=== PATIENT | female | born 1985 | race American Indian/Alaskan Native ===

== ENCOUNTER 2016-08-24 10:25 | Emergency (ER) | payer SELFPAY ==
[2016-08-24 11:27] VITALS: BP 130/93
[2016-08-24] MEDS ORDERED: TORADOL IM ONE (11:42)
[2016-08-24] MEDS ORDERED: ZOFRAN ODT PO ONE (11:42)
--- NOTE | 2016-08-24 12:09 | Emergency Department Report ---
ED General Adult HPI - General Chief complaint: Headache Stated complaint: HEAD/BACK PAIN Time Seen by Provider: 08/24/16 11:32 Source: patient Mode of arrival: Ambulatory Limitations: No Limitations - History of Present Illness Initial comments: PT c/o gradual onset of headache x 3 days. PT states her whole body hurts. PT has hx of back pain and she is currently c/o back pain. PT staets she took dayquil and tylenol today. PT c/o N/V. PT states she has been around others with similar symptoms. MD Complaint: headache Onset/Timin -: Gradual Location: head, back Severity scale (0 -10): 10 Quality: other (pressure ) Consistency: constant Worsens with: other (light makes her headache worse ) Associated Symptoms: fever/chills, headaches, nausea/vomiting Treatments Prior to Arrival: other (tylenol and dayquil ) - Related Data Previous Rx's Medication Instructions Recorded Last Taken Type Ibuprofen [Motrin] 600 mg PO Q8H PRN #15 tablet 08/24/16 Unknown Rx Ondansetron [Zofran Odt] 4 mg PO Q8HR PRN #10 tab.rapdis 08/24/16 Unknown Rx Allergies Allergy/AdvReac Type Severity Reaction Status Date / Time No Known Allergies Allergy Verified 03/17/14 05:44 ED Review of Systems ROS: Stated complaint: HEAD/BACK PAIN Other details as noted in HPI Comment: All other systems reviewed and negative Constitutional: fever (subjective ) Eyes: other (photophobia ) ENT: denies: throat pain Respiratory: denies: cough Musculoskeletal: back pain, myalgia Neurological: headache, other (denies syncope ). denies: numbness ED Past Medical Hx - Past Medical History Hx Asthma: Yes Additional medical history: Chronic back pain - Surgical History Past Surgical History?: No - Social History Smoking Status: Never Smoker Substance Use Type: None - Medications Home Medications: Home Medications Medication Instructions Recorded Confirmed Last Taken Type Ibuprofen [Motrin] 600 mg PO Q8H PRN #15 tablet 08/24/16 Unknown Rx Ondansetron [Zofran Odt] 4 mg PO Q8HR PRN #10 tab.rapdis 08/24/16 Unknown Rx ED Physical Exam - General Limitations: No Limitations General appearance: alert, in no apparent distress - Head Head exam: Present: atraumatic, normocephalic - Eye Eye exam: Present: normal appearance, PERRL, EOMI - ENT ENT exam: Present: normal exam, normal orophraynx, TM's normal bilaterally, normal external ear exam - Neck Neck exam: Present: normal inspection, full ROM. Absent: tenderness, meningismus, lymphadenopathy - Respiratory Respiratory exam: Present: normal lung sounds bilaterally. Absent: respiratory distress - Cardiovascular Cardiovascular Exam: Present: regular rate, normal rhythm, normal heart sounds - GI/Abdominal GI/Abdominal exam: Present: soft, normal bowel sounds. Absent: tenderness - Rectal Rectal exam: Present: deferred - Extremities Exam Extremities exam: Present: normal inspection, full ROM - Back Exam Back exam: Present: normal inspection, full ROM. Absent: tenderness - Neurological Exam Neurological exam: Present: alert, oriented X3 - Psychiatric Psychiatric exam: Present: normal affect, normal mood - Skin Skin exam: Present: warm, dry, intact ED Course Vital Signs 08/24/16 11:23 Temperature 97.9 F Pulse Rate 93 H Respiratory 20 Rate Blood Pressure 130/93 O2 Sat by Pulse 98 Oximetry - Reevaluation(s) Reevaluation #1: 08/24/16 12:06 PT aware Tylenol is an active ingredient in Dayquil. PT aware she should not take two tylenol containing products together. Reevaluation #2: 08/24/16 12:56 PT states the pain has eased off some. PT aware of lab results. Pt requesting work excuse. - Pulse Oximetry Interpretation Digit-Finger Initial Pulse Oximetry Readin Actions Taken: none ED Medical Decision Making - Differential Diagnosis headache, migraine, age Critical Care Time: No Critical care attestation.: If time is entered above; I have spent that time in minutes in the direct care of this critically ill patient, excluding procedure time. ED Disposition Clinical Impression: Myalgia Headache Qualifiers: Headache type: unspecified Headache chronicity pattern: acute headache Intractability: not intractable Qualified Code(s): R51 - Headache Disposition: DISCHARGED TO HOME OR SELFCARE Is pt being admited?: No Does the pt Need Aspirin: No Condition: Stable Instructions: Migraine Headache (ED), Acute Headache (ED), Acute Nausea and Vomiting (ED) Additional Instructions: Do not take any more medication with Tylenol in it today Prescriptions: Ibuprofen [Motrin] 600 mg PO Q8H PRN #15 tablet PRN Reason: Pain Ondansetron [Zofran Odt] 4 mg PO Q8HR PRN #10 tab.rapdis PRN Reason: Nausea Referrals: PRIMARY CARE,MD [Primary Care Provider] - 3-5 Days Forms: Work/School Release Form(ED)
[2016-08-24 12:36] LABS: Bilirubin,Urine NEG (Negative); Blood,Urine MOD (Negative); Ketones,Urine NEG (Negative); Leukocyte Esterase,Urine NEG (Negative); Mucus,Urine FEW /HPF; Nitrite,Urine NEG (Negative); Protein,Urine <15 mg/dL mg/dL (Negative); Urobilinogen,Urine < 2.0 mg/dL (<2.0)
== END 2016-08-24 13:06 | disposition home or self-care (01) ==
LOC: ED 10:25
DX: R51 Headache (principal); M79.1 Myalgia; J45.909 Unspecified asthma, uncomplicated; G89.29 Other chronic pain
CPT/HCPCS: 81001; 81025; 96372; 99282; J1885; Q0162

== ENCOUNTER 2016-10-20 18:54 | Emergency (ER) | payer OTHER ==
[2016-10-20 21:01] VITALS: BP 130/91
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
[2016-10-20] MEDS ORDERED: NORCO 5/325 PO ONE (21:35)
[2016-10-20] MEDS ORDERED: FLEXERIL PO ONE (21:35)
[2016-10-20 21:38] LABS: Bilirubin,Urine NEG (Negative); Blood,Urine MOD (Negative); Ketones,Urine NEG (Negative); Leukocyte Esterase,Urine LG (Negative); Mucus,Urine FEW /HPF; Nitrite,Urine NEG (Negative); Protein,Urine <15 mg/dL mg/dL (Negative); Urobilinogen,Urine < 2.0 mg/dL (<2.0)
--- NOTE | 2016-10-21 07:25 | XRay Report ---
RIGHT SHOULDER: History: Right shoulder pain. Routine views demonstrate normal bony and soft tissue structures with normal joint alignment of the shoulder. IMPRESSION: No bony abnormality is detected.
--- NOTE | 2016-10-21 07:26 | XRay Report ---
RIGHT HAND, 3 views: History: Right hand pain and swelling. The bony architecture is intact. Bony alignment is normal. No soft tissue abnormalities are seen. The joint spaces appear preserved. IMPRESSION: Normal right hand.
== END 2016-10-20 23:30 | disposition home or self-care (01) ==
LOC: ED 18:54
DX: M25.511 Pain in right shoulder (principal); M79.601 Pain in right arm; J45.909 Unspecified asthma, uncomplicated; G89.29 Other chronic pain; V49.49XA Driver injured in collision with other motor vehicles in traffic accident, initial encounter; W22.11XA Striking against or struck by driver side automobile airbag, initial encounter; Y93.89 Activity, other specified; Y99.9 Unspecified external cause status; Y92.410 Unspecified street and highway as the place of occurrence of the external cause
CPT/HCPCS: 81001; 81025; 99284

== ENCOUNTER 2017-07-10 09:57 | Emergency (ER) | payer OTHER ==
[2017-07-10 10:37] VITALS: BP 122/80
--- NOTE | 2017-07-10 14:36 | Emergency Department Report ---
HPI - General Chief Complaint: Sore Throat Time Seen by Provider: 07/10/17 13:27 - HPI HPI: 32-year-old female presents today complaining of sore throat, body aches, headache and cough 2 days. Patient has been taking DayQuil and NyQuil without relief. Denies fever, chills, nausea, vomiting, diarrhea, chest pain, shortness of breath, abdominal pain. Admits to exposure to flu. ED Past Medical Hx - Past Medical History Previous Medical History?: Yes Hx Asthma: Yes Additional medical history: Chronic back pain - Surgical History Past Surgical History?: No - Social History Smoking Status: Never Smoker Substance Use Type: None - Medications Home Medications: Home Medications Medication Instructions Recorded Confirmed Last Taken Type Cyclobenzaprine [Flexeril] 10 mg PO TID PRN #15 tablet 10/20/16 Unknown Rx Ibuprofen [Motrin] 600 mg PO Q8H PRN #15 tablet 10/20/16 Unknown Rx Brompheniramine/Pseudoephed/Dm 10 ml PO Q4H #200 ml 07/10/17 Unknown Rx [Bromfed Dm Cough Syrup] Oseltamivir [Tamiflu] 75 mg PO BID #10 cap 07/10/17 Unknown Rx ED Review of Systems ROS: Stated complaint: COUGH/BODY PAIN Other details as noted in HPI Constitutional: malaise. denies: chills, fever Eyes: denies: eye pain ENT: throat pain, congestion. denies: ear pain Respiratory: cough. denies: shortness of breath, wheezing Cardiovascular: denies: chest pain, palpitations Endocrine: no symptoms reported Gastrointestinal: denies: abdominal pain, nausea, vomiting Skin: denies: rash, lesions Neurological: headache. denies: weakness, numbness, paresthesias Physical Exam - Physical Exam Vital Signs: Vital Signs 07/10/17 10:34 Temperature 97.6 F Pulse Rate 80 Respiratory 16 Rate Blood Pressure 122/80 O2 Sat by Pulse 99 Oximetry Physical Exam: GENERAL: The patient is well-developed and well-nourished. Patient is in NAD. HEAD: Normocephalic. Atraumatic. No sinus tenderness to palpation. EYES: Extraocular motions are intact, PERRL. EARS: External auditory canals and tympanic membranes clear; hearing grossly intact. NOSE: Normal nasal mucosa with no nasal discharge. THROAT: No erythema, swelling or exudates. Cobblestoning of posterior pharynx noted. Clear postnasal drip. NECK: Supple, nontender, without lymphadenopathy. No meningitic signs are noted. CHEST/LUNGS: Clear to auscultation throughout. No cough appreciated. HEART/CARDIOVASCULAR: Regular rate and rhythm. No murmurs, rubs or gallops. ABDOMEN: Abdomen is soft, nontender. Bowel sounds normoactive. No guarding or rebound tenderness. EXTREMITIES: Peripheral pulses intact. Capillary refill less than 2 seconds. NEURO: Alert and oriented x 3. Normal gait. CN II-XII intact. Symmetrical strength and sensation. Reflexes 2+ throughout. Cerebellar testing normal. GCS score of 15. ED Course Vital Signs 07/10/17 10:34 Temperature 97.6 F Pulse Rate 80 Respiratory 16 Rate Blood Pressure 122/80 O2 Sat by Pulse 99 Oximetry ED Medical Decision Making - Lab Data Vital Signs 07/10/17 10:34 Temperature 97.6 F Pulse Rate 80 Respiratory 16 Rate Blood Pressure 122/80 O2 Sat by Pulse 99 Oximetry - Medical Decision Making 32-year-old female presents today complaining of sore throat, body aches, headache, cough 2 days. Her rapid strep test is negative. Patient is in no acute distress at this time. She she will be sent home on Tamiflu and Bromfed and will be discharged home and is encouraged to follow up with a primary care provider. She is encouraged to return to the emergency room for any worsening symptoms. Critical care attestation.: If time is entered above; I have spent that time in minutes in the direct care of this critically ill patient, excluding procedure time. ED Disposition Clinical Impression: Viral syndrome Disposition: DC-01 TO HOME OR SELFCARE Is pt being admited?: No Does the pt Need Aspirin: No Condition: Stable Instructions: Influenza (ED) Additional Instructions: Follow-up with primary care provider. Return to the emergency department if symptoms worsen. Prescriptions: Brompheniramine/Pseudoephed/Dm [Bromfed Dm Cough Syrup] 10 ml PO Q4H #200 ml Oseltamivir [Tamiflu] 75 mg PO BID #10 cap Referrals: XENA ROWE MD [Primary Care Provider] - 3-5 Days Forms: Work/School Release Form(ED) Time of Disposition: 14:36
== END 2017-07-10 15:10 | disposition home or self-care (01) ==
LOC: ED 09:57
DX: B34.9 Viral infection, unspecified (principal); J45.909 Unspecified asthma, uncomplicated; M54.9 Dorsalgia, unspecified; G89.29 Other chronic pain
CPT/HCPCS: 87116; 87430; 99282

== ENCOUNTER 2017-09-24 05:45 | Emergency (ER) | payer OTHER ==
[2017-09-24 06:28] LABS: Basophils # (Auto) 0.1 K/mm3 (0.0-0.1); Basophils % (Auto) 0.9 % (0.0-1.8); Eosinophils # (Auto) 0.1 K/mm3 (0.0-0.4); Eosinophils % (Auto) 2.3 % (0.0-4.3); Hematocrit 38.4 % (30.3-42.9); Hemoglobin 12.1 gm/dl (10.1-14.3); Lymphocytes # (Auto) 2.6 K/mm3 (1.2-5.4); Lymphocytes % (Auto) 39.9 % (13.4-35.0); Mean Corpuscular HGB Conc 32 % (30-34); Mean Corpuscular Volume 73 fl (79-97); Monocytes # (Auto) 0.5 K/mm3 (0.0-0.8); Monocytes % (Auto) 7.6 % (0.0-7.3); Platelet Count 526 K/mm3 (140-440); Red Blood Count 5.25 M/mm3 (3.65-5.03); Red Cell Distribution Width 18.7 % (13.2-15.2)
[2017-09-24 06:30] LABS: Mean Corpuscular Hemoglobin 23 pg (28-32)
[2017-09-24 06:46] LABS: Alanine Aminotransferase 17 units/L (7-56); Albumin 3.7 g/dL (3.9-5); BUN/Creatinine Ratio 16; Blood Urea Nitrogen 11 mg/dL (7-17); Calcium 8.9 mg/dL (8.4-10.2); Hemolysis Index 1
[2017-09-24 06:59] LABS: Bilirubin,Urine NEG (Negative); Blood,Urine NEG (Negative); Color,Urine Yellow (Yellow); Mucus,Urine FEW /HPF; Protein,Urine <15 mg/dL mg/dL (Negative); Urobilinogen,Urine < 2.0 mg/dL (<2.0)
[2017-09-24] MEDS ORDERED: ZOFRAN IV ONE (11:03)
[2017-09-24] MEDS ORDERED: SUBLIMAZE IV ONE (11:03)
--- NOTE | 2017-09-24 11:08 | Emergency Department Report ---
HPI - General Chief Complaint: Abdominal Pain Time Seen by Provider: 09/24/17 10:56 - HPI HPI: Room 24 The patient is a 32-year-old female presenting with chief complaint of abdominal pain. The patient states for the past 3 days she has had right-sided abdominal pain nausea vomiting. Patient states her pain has been constant and dull in nature. Patient denies diarrhea or fever. Patient denies dysuria or hematuria. The patient currently gives her pain a score of 7/10 Location: Right side of abdomen Duration: 3 days Quality: Pain Severity: 7/10 Modifying factors: [see above] Context: [see above] Mode of transportation: [not driving] ED Past Medical Hx - Past Medical History Previous Medical History?: Yes Hx Asthma: Yes Additional medical history: Chronic back pain - Surgical History Past Surgical History?: No - Family History Family history: no significant - Social History Smoking Status: Never Smoker Substance Use Type: None - Medications Home Medications: Home Medications Medication Instructions Recorded Confirmed Last Taken Type Cyclobenzaprine [Flexeril] 10 mg PO TID PRN #15 tablet 10/20/16 Unknown Rx Ibuprofen [Motrin] 600 mg PO Q8H PRN #15 tablet 10/20/16 Unknown Rx Brompheniramine/Pseudoephed/Dm 10 ml PO Q4H #200 ml 07/10/17 Unknown Rx [Bromfed Dm Cough Syrup] Oseltamivir [Tamiflu] 75 mg PO BID #10 cap 07/10/17 Unknown Rx Promethazine [Phenergan TAB] 25 mg PO Q6HR PRN #20 tab 09/24/17 Unknown Rx Promethazine [Phenergan] 25 mg MA Q6HR PRN #5 supp.rect 09/24/17 Unknown Rx traMADol [Ultram] 50 mg PO Q6HR PRN #14 tablet 09/24/17 Unknown Rx ED Review of Systems ROS: Stated complaint: ABD PAIN Other details as noted in HPI Constitutional: denies: fever Gastrointestinal: abdominal pain, nausea, vomiting. denies: diarrhea Genitourinary: denies: dysuria, hematuria Physical Exam - Physical Exam Vital Signs: Vital Signs 09/24/17 08:30 Temperature 99.1 F Pulse Rate 78 Respiratory 18 Rate Blood Pressure 116/85 [Left] O2 Sat by Pulse 97 Oximetry Physical Exam: GENERAL: The patient is well-developed well-nourished female lying on stretcher not appearing to be in acute distress. [] HEENT: Normocephalic. Atraumatic. Extraocular motions are intact. Patient has moist mucous membranes. NECK: Supple. Trachea midline CHEST/LUNGS: Clear to auscultation. There is no respiratory distress noted. HEART/CARDIOVASCULAR: Regular. There is no tachycardia. There is no gallop rub or murmur. ABDOMEN: Abdomen is soft, with discomfort to palpation in the midepigastric, right upper quadrant and right lower quadrant. Patient has normal bowel sounds. There is no abdominal distention. SKIN: There is no rash. There is no edema. There is no diaphoresis. NEURO: The patient is awake, alert, and oriented. The patient is cooperative. The patient has normal speech and gait. MUSCULOSKELETAL: There is no evidence of acute injury. ED Course Vital Signs 09/24/17 08:30 Temperature 99.1 F Pulse Rate 78 Respiratory 18 Rate Blood Pressure 116/85 [Left] O2 Sat by Pulse 97 Oximetry - Reevaluation(s) Reevaluation #1: 09/24/17 13:42 Patient tolerating po - Consultations Consultation #1: 09/24/17 13:05 Surgery paged 09/24/17 13:[address] Sandoval- will review the CT with radiologist and evaluate patient 09/24/17 13:37 Case further discussed with Dr. Sandoval- recommends by mouth challenge the patient tolerated to have patient follow up with primary physician in 2-3 days if prescription for antiemetics ED Medical Decision Making - Lab Data Result diagrams: 09/24/17 06:12 09/24/17 06:12 Laboratory Tests 09/24/17 09/24/17 09/24/17 06:12 06:12 06:12 WBC 6.6 RBC 5.25 H Hgb 12.1 Hct 38.4 MCV 73 L MCH 23 L MCHC 32 RDW 18.7 H Plt Count 526 H Lymph % (Auto) 39.9 H Erath % (Auto) 7.6 H Eos % (Auto) 2.3 Baso % (Auto) 0.9 Lymph # 2.6 Erath # 0.5 Eos # 0.1 Baso # 0.1 Seg Neutrophils % 49.3 Seg Neutrophils # 3.2 Sodium 141 Potassium 4.4 Chloride 98.8 Carbon Dioxide 29 Anion Gap 18 BUN 11 Creatinine 0.7 Estimated GFR > 60 BUN/Creatinine Ratio 16 Glucose 101 H Calcium 8.9 Total Bilirubin < 0.20 AST 17 ALT 17 Alkaline Phosphatase 84 Total Protein 7.9 Albumin 3.7 L Albumin/Globulin Ratio 0.9 Lipase HCG, Qual Negative Urine Color Urine Turbidity Urine pH Ur Specific Hazard Urine Protein Urine Glucose (UA) Urine Ketones Urine Blood Urine Nitrite Urine Bilirubin Urine Urobilinogen Ur Leukocyte Esterase Urine WBC (Auto) Urine RBC (Auto) U Epithel Cells (Auto) Urine Mucus 09/24/17 09/24/17 06:12 06:15 WBC RBC Hgb Hct MCV MCH MCHC RDW Plt Count Lymph % (Auto) Erath % (Auto) Eos % (Auto) Baso % (Auto) Lymph # Erath # Eos # Baso # Seg Neutrophils % Seg Neutrophils # Sodium Potassium Chloride Carbon Dioxide Anion Gap BUN Creatinine Estimated GFR BUN/Creatinine Ratio Glucose Calcium Total Bilirubin AST ALT Alkaline Phosphatase Total Protein Albumin Albumin/Globulin Ratio Lipase 19 HCG, Qual Urine Color Yellow Urine Turbidity Clear Urine pH 6.0 Ur Specific Hazard 1.016 Urine Protein <15 mg/dl Urine Glucose (UA) Neg Urine Ketones Neg Urine Blood Neg Urine Nitrite Neg Urine Bilirubin Neg Urine Urobilinogen < 2.0 Ur Leukocyte Esterase Lg Urine WBC (Auto) 2.0 Urine RBC (Auto) 4.0 U Epithel Cells (Auto) 9.0 Urine Mucus Few - Radiology Data Radiology results: report reviewed (CT abdomen and pelvis), image reviewed (CT abdomen and pelvis) [facility] [address] [place] [address] Cat Scan Report Signed Patient: SONU GONZALEZ MR#: [id number] : 1985 Acct:[id number] Age/Sex: 32 / F ADM Date: 09/24/17 Loc: ED Attending Dr: Ordering Physician: DRISS DEL TORO MD Date of Service: 09/24/17 Procedure(s): CT abdomen pelvis w con Accession Number(s): [id number] cc: DRISS DEL TORO MD CT ABDOMEN AND PELVIS WITH CONTRAST INDICATION: Right-sided abdominal pain. COMPARISON: None similar. FINDINGS: Abdomen and pelvis CT performed following intravenous administration of 100 cc of Omnipaque 300. LUNG BASES: Slight left basilar scarring. Right hemidiaphragm slightly elevated. Nonspecific distal esophageal wall prominence/thickening, not excluded for gastroesophageal reflux and/or approximately 5.4 cm hiatal hernia, amongst others. ABDOMEN: Liver, spleen, gallbladder, pancreas, adrenals, nonaneurysmal abdominal aorta, IVC and kidneys within normal limits. Approximately 4 mm indeterminate peripheral right hepatic hypodensity, axial image 51, series 2. Left hepatic lobe tip wraps around the spleen in the left upper quadrant. Nonopacified GI tract evaluation limited, though grossly nonobstructive. Normal appendix. Usual colonic stool. No ascites. No size significant adenopathy with few subcentimeter mesenteric and retroperitoneal lymph nodes, the largest lymph node medial to the subhepatic IVC approximately 0.9 cm as on axial image 50, series 2. Subtle foci of mesenteric root haziness now noted on axial images 64-100 with nonspecific differential diagnosis of edema, inflammation, idiopathic or even neoplastic as lymphoma. PELVIS: Possibly retroverted uterine fundus situated in the left hemipelvis with a complex cystic appearance to the lower uterine segment/cervix with the single largest hypodense or cystic focus measuring 1.9 cm, axial image 157, series 2. Grossly unremarkable adnexa/ovaries. Numerous small pelvic phleboliths. Unremarkable urinary bladder and the rectosigmoid. No free fluid or significant adenopathy. Bilateral L5-S1 pars defects with approximately 3 mm anterolisthesis of L5 over S1. Possible old healed bilateral inferior pubic rami fractures versus developmental. CONCLUSION: 1. "Kenisha mesentery" with various differential considerations, as above. 2. Other findings, including moderate hiatal hernia and L5-S1 findings, amongst others, as detailed above. Thank you for the opportunity to participate in this patient's care. Transcribed By: RS Dictated By: KATALINA WALKER MD Electronically Authenticated By: KATALINA WALKER MD Signed Date/Time: 09/24/171216 DD/ 120 TD/TT: 09/24/17 121 - Differential Diagnosis gastritis, symptomatic cholelithiasis, appendicitis, renal colic Critical care attestation.: If time is entered above; I have spent that time in minutes in the direct care of this critically ill patient, excluding procedure time. ED Disposition Clinical Impression: Nausea & vomiting, Abdominal pain, acute Disposition: DC-01 TO HOME OR SELFCARE Is pt being admited?: No Does the pt Need Aspirin: No Condition: Stable Instructions: Abdominal Pain (ED) Additional Instructions: Return to the emergency department immediately should you develop worsening symptoms, fever, inability to tolerate food or liquid or any other concerns. Prescriptions: Promethazine [Phenergan TAB] 25 mg PO Q6HR PRN #20 tab PRN Reason: Nausea Promethazine [Phenergan] 25 mg MA Q6HR PRN #5 supp.rect PRN Reason: Vomiting traMADol [Ultram] 50 mg PO Q6HR PRN #14 tablet PRN Reason: Pain Referrals: XENA ROWE MD [Primary Care Provider] - 3-5 Days KIT PALMER MD [Staff Physician] - 3-5 Days (Dr. Palmer is a chief steward/stewardess. Please follow up with him for further evaluation) Time of Disposition: 13:39
--- NOTE | 2017-09-24 12:22 | Cat Scan Report ---
CT ABDOMEN AND PELVIS WITH CONTRAST INDICATION: Right-sided abdominal pain. COMPARISON: None similar. FINDINGS: Abdomen and pelvis CT performed following intravenous administration of 100 cc of Omnipaque 300. LUNG BASES: Slight left basilar scarring. Right hemidiaphragm slightly elevated. Nonspecific distal esophageal wall prominence/thickening, not excluded for gastroesophageal reflux and/or approximately 5.4 cm hiatal hernia, amongst others. ABDOMEN: Liver, spleen, gallbladder, pancreas, adrenals, nonaneurysmal abdominal aorta, IVC and kidneys within normal limits. Approximately 4 mm indeterminate peripheral right hepatic hypodensity, axial image 51, series 2. Left hepatic lobe tip wraps around the spleen in the left upper quadrant. Nonopacified GI tract evaluation limited, though grossly nonobstructive. Normal appendix. Usual colonic stool. No ascites. No size significant adenopathy with few subcentimeter mesenteric and retroperitoneal lymph nodes, the largest lymph node medial to the subhepatic IVC approximately 0.9 cm as on axial image 50, series 2. Subtle foci of mesenteric root haziness now noted on axial images 64-100 with nonspecific differential diagnosis of edema, inflammation, idiopathic or even neoplastic as lymphoma. PELVIS: Possibly retroverted uterine fundus situated in the left hemipelvis with a complex cystic appearance to the lower uterine segment/cervix with the single largest hypodense or cystic focus measuring 1.9 cm, axial image 157, series 2. Grossly unremarkable adnexa/ovaries. Numerous small pelvic phleboliths. Unremarkable urinary bladder and the rectosigmoid. No free fluid or significant adenopathy. Bilateral L5-S1 pars defects with approximately 3 mm anterolisthesis of L5 over S1. Possible old healed bilateral inferior pubic rami fractures versus developmental. CONCLUSION: 1. "Kenisha mesentery" with various differential considerations, as above. 2. Other findings, including moderate hiatal hernia and L5-S1 findings, amongst others, as detailed above. Thank you for the opportunity to participate in this patient's care.
[2017-09-24 13:21] VITALS: BP 110/78
== END 2017-09-24 14:28 | disposition home or self-care (01) ==
LOC: ED 05:45
DX: R10.11 Right upper quadrant pain (principal); R10.13 Epigastric pain; R10.31 Right lower quadrant pain; R11.2 Nausea with vomiting, unspecified; G89.29 Other chronic pain; J45.909 Unspecified asthma, uncomplicated
CPT/HCPCS: 36415; 74177; 80053; 81001; 83690; 84703; 85025; 96374; 96375; 99284; J2405; J3010; Q9967

== ENCOUNTER 2017-11-24 07:52 | Emergency (ER) | payer OTHER ==
[2017-11-24 09:21] VITALS: BP 130/81
[2017-11-24] MEDS ORDERED: MOTRIN PO ONE (10:12)
--- NOTE | 2017-11-24 10:14 | Emergency Department Report ---
Blank Doc - Documentation Documentation: Patient is a 32-year-old female has had 3 days of abdominal pain. Patient states the abdominal pain is in the right upper quadrant. Patient denies any nausea vomiting diarrhea cough congestion and fevers chills or dysuria at this time. Patient will be moved to fast track area for ultrasound and blood work cholecystitis will be ruled out at this time. [place]
[2017-11-24 10:56] LABS: Basophils # (Auto) 0.1 K/mm3 (0.0-0.1); Basophils % (Auto) 0.7 % (0.0-1.8); Eosinophils # (Auto) 0.1 K/mm3 (0.0-0.4); Hematocrit 35.2 % (30.3-42.9); Hemoglobin 11.1 gm/dl (10.1-14.3); Lymphocytes # (Auto) 2.4 K/mm3 (1.2-5.4); Lymphocytes % (Auto) 32.5 % (13.4-35.0); Mean Corpuscular HGB Conc 32 % (30-34); Mean Corpuscular Volume 75 fl (79-97); Monocytes # (Auto) 0.9 K/mm3 (0.0-0.8); Monocytes % (Auto) 12.3 % (0.0-7.3); Platelet Count 505 K/mm3 (140-440); Red Blood Count 4.69 M/mm3 (3.65-5.03); Red Cell Distribution Width 18.9 % (13.2-15.2)
[2017-11-24 11:13] LABS: Mean Corpuscular Hemoglobin 24 pg (28-32)
[2017-11-24 11:15] LABS: Alanine Aminotransferase 13 units/L (7-56); Albumin 3.6 g/dL (3.9-5); BUN/Creatinine Ratio 19; Blood Urea Nitrogen 13 mg/dL (7-17); Calcium 8.6 mg/dL (8.4-10.2); Hemolysis Index 24
--- NOTE | 2017-11-24 11:19 | Ultrasound Report ---
ULTRASOUND ABDOMEN LIMITED: TECHNIQUE: Transabdominal ultrasound with color Doppler interrogation. HISTORY: right upper quadrant abdominal pain. COMPARISON: none. FINDINGS: LIVER: Normal. BILIARY SYSTEM: Normal. PANCREAS: Normal. RIGHT KIDNEY: Normal. PROXIMAL AORTA: Normal. ASCITES: None. IMPRESSION: Unremarkable exam.
[2017-11-24 11:50] LABS: Bilirubin,Urine NEG (Negative); Blood,Urine NEG (Negative); Color,Urine Yellow (Yellow); Mucus,Urine FEW /HPF; Protein,Urine <15 mg/dL mg/dL (Negative); Urobilinogen,Urine < 2.0 mg/dL (<2.0)
[2017-11-24 11:51] LABS: HCG Qualitative,Urine Negative (Negative)
--- NOTE | 2017-11-24 12:00 | Emergency Department Report ---
ED Abdominal Pain HPI - General Chief Complaint: Abdominal Pain Stated Complaint: ABDOMINAL PAIN Time Seen by Provider: 11/24/17 10:10 Source: patient Mode of arrival: Ambulatory Limitations: No Limitations - History of Present Illness Initial Comments: This is a 32-year-old -[place] female presents with right upper quadrant pain for 3 days patient. Patient reports pain is worse with bending and sharp. Pain is 7 out of 10 on a pain scale and intermittent and Nonradiating. She is currently taking Pepto-Bismol and NSAID's without improvement of symptoms. Denies nausea or vomiting, diarrhea, discharge, chest pain, shortness of breath, and fever. MD Complaint: abdominal pain (right upper quadrant) -: days(s) (3 days) Location: RUQ Radiation: none Migration to: no migration Severity: moderate Severity scale (0 -10): 7 Quality: aching, sharp Consistency: intermittent Improves With: nothing Worsens With: movement Associated Symptoms: denies other symptoms. denies: nausea, vomiting, diarrhea , fever, constipation, dysuria, hematuria, anorexia Treatments Prior to Arrival: NSAIDs - Related Data LMP Date: 07/30/17 LMP (females 10-50): unknown Previous Rx's Medication Instructions Recorded Last Taken Type Cyclobenzaprine [Flexeril] 10 mg PO TID PRN #15 tablet 10/20/16 Unknown Rx Ibuprofen [Motrin] 600 mg PO Q8H PRN #15 tablet 10/20/16 Unknown Rx Brompheniramine/Pseudoephed/Dm 10 ml PO Q4H #200 ml 07/10/17 Unknown Rx [Bromfed Dm Cough Syrup] Oseltamivir [Tamiflu] 75 mg PO BID #10 cap 07/10/17 Unknown Rx Promethazine [Phenergan TAB] 25 mg PO Q6HR PRN #20 tab 09/24/17 Unknown Rx Promethazine [Phenergan] 25 mg NJ Q6HR PRN #5 supp.rect 09/24/17 Unknown Rx traMADol [Ultram] 50 mg PO Q6HR PRN #14 tablet 09/24/17 Unknown Rx Allergies Allergy/AdvReac Type Severity Reaction Status Date / Time No Known Allergies Allergy Verified 03/17/14 05:44 ED Review of Systems ROS: Stated complaint: ABDOMINAL PAIN Other details as noted in HPI Constitutional: denies: chills, fever Respiratory: denies: cough, shortness of breath, wheezing Cardiovascular: denies: chest pain, palpitations Gastrointestinal: abdominal pain (right upper quadrant tenderness). denies: nausea, vomiting, diarrhea, constipation Genitourinary: denies: urgency, dysuria, frequency, discharge Neurological: denies: headache, weakness, numbness, paresthesias Psychiatric: denies: anxiety, depression ED Past Medical Hx - Past Medical History Hx Asthma: Yes Additional medical history: Chronic back pain - Surgical History Past Surgical History?: No - Social History Smoking Status: Never Smoker - Medications Home Medications: Home Medications Medication Instructions Recorded Confirmed Last Taken Type Cyclobenzaprine [Flexeril] 10 mg PO TID PRN #15 tablet 10/20/16 Unknown Rx Ibuprofen [Motrin] 600 mg PO Q8H PRN #15 tablet 10/20/16 Unknown Rx Brompheniramine/Pseudoephed/Dm 10 ml PO Q4H #200 ml 07/10/17 Unknown Rx [Bromfed Dm Cough Syrup] Oseltamivir [Tamiflu] 75 mg PO BID #10 cap 07/10/17 Unknown Rx Promethazine [Phenergan TAB] 25 mg PO Q6HR PRN #20 tab 09/24/17 Unknown Rx Promethazine [Phenergan] 25 mg NJ Q6HR PRN #5 supp.rect 09/24/17 Unknown Rx traMADol [Ultram] 50 mg PO Q6HR PRN #14 tablet 09/24/17 Unknown Rx ED Physical Exam - General Limitations: No Limitations General appearance: alert, in no apparent distress, obese - Respiratory Respiratory exam: Present: normal lung sounds bilaterally. Absent: respiratory distress, wheezes, rales, rhonchi, stridor, decreased breath sounds - Cardiovascular Cardiovascular Exam: Present: regular rate, normal rhythm, normal heart sounds. Absent: systolic murmur, diastolic murmur, rubs, gallop - GI/Abdominal GI/Abdominal exam: Present: soft, tenderness (right upper quadrant), normal bowel sounds. Absent: organomegaly, mass - Neurological Exam Neurological exam: Present: alert, oriented X3, normal gait - Psychiatric Psychiatric exam: Present: normal affect, normal mood - Skin Skin exam: Present: warm, dry, intact, normal color. Absent: rash ED Course Vital Signs 11/24/17 09:18 Temperature 99.4 F Pulse Rate 107 H Respiratory 16 Rate Blood Pressure 130/81 O2 Sat by Pulse 97 Oximetry ED Medical Decision Making - Lab Data Result diagrams: 11/24/17 10:42 11/24/17 10:40 - Radiology Data Radiology results: report reviewed ULTRASOUND ABDOMEN LIMITED: TECHNIQUE: Transabdominal ultrasound with color Doppler interrogation. HISTORY: right upper quadrant abdominal pain. COMPARISON: none. FINDINGS: LIVER: Normal. BILIARY SYSTEM: Normal. PANCREAS: Normal. RIGHT KIDNEY: Normal. PROXIMAL AORTA: Normal. ASCITES: None. IMPRESSION: Unremarkable exam. - Medical Decision Making 32 y.o. female that presents with right upper quadrant abdominal pain for 3 days. Patient examined by me. In no acute distress. Vitals are stable. Obtained CBC, UA, urine hCG & CMP. Ultrasound of abdomen and pelvis normal exam. All labs within normal limits besides elevated platelet. Referred to [facility] for follow-up. Discharged home. Follow up with [facility] in 48-72 hours. Critical care attestation.: If time is entered above; I have spent that time in minutes in the direct care of this critically ill patient, excluding procedure time. ED Disposition Clinical Impression: Right upper quadrant pain, Amenorrhea Abdominal pain Qualifiers: Abdominal location: right upper quadrant Qualified Code(s): R10.11 - Right upper quadrant pain Disposition: DC- TO HOME OR SELFCARE Is pt being admited?: No Does the pt Need Aspirin: No Condition: Stable Instructions: Abdominal Pain (ED) Additional Instructions: Take ibuprofen, Tylenol, or naproxen as needed for pain control. Follow up with primary care provider if [facility] in 24-72 hours. Return to ER if chest pain unresolved, shortness of breath, or difficulty breathing. Referrals: [facility], [facility] [Provider Group] - 3-5 Days [facility] [Provider Group] - 3-5 Days [facility] [Provider Group] - 3-5 Days [facility] [Outside] - 3-5 Days Forms: Work/School Release Form(ED) Time of Disposition: 12:12 Print Language: CROATIAN
== END 2017-11-24 12:27 | disposition home or self-care (01) ==
LOC: ED 07:52
DX: N91.2 Amenorrhea, unspecified (principal); R10.11 Right upper quadrant pain; J45.909 Unspecified asthma, uncomplicated; G89.29 Other chronic pain
CPT/HCPCS: 36415; 76705; 80053; 81001; 81025; 85025; 99284

== ENCOUNTER 2018-09-07 10:07 | Emergency (ER) | payer OTHER ==
--- NOTE | 2018-09-07 12:14 | Emergency Department Report ---
ED ENT HPI - General Chief complaint: Earache Stated complaint: LEFT EAR PAIN Time Seen by Provider: 09/07/18 11:26 Source: patient Mode of arrival: Ambulatory Limitations: No Limitations - History of Present Illness Initial comments: 33 yo female with left ear pain. 4 days. No fever. uses q tip. No congestion. Mild sore throat. -: Sudden, days(s) (4) Location: L ear Severity: mild Quality: aching Consistency: constant Improves with: pressure Worsens with: none - Related Data Previous Rx's Medication Instructions Recorded Last Taken Type Cyclobenzaprine [Flexeril] 10 mg PO TID PRN #15 tablet 10/20/16 Unknown Rx Ibuprofen [Motrin] 600 mg PO Q8H PRN #15 tablet 10/20/16 Unknown Rx Brompheniramine/Pseudoephed/Dm 10 ml PO Q4H #200 ml 07/10/17 Unknown Rx [Bromfed Dm Cough Syrup] Oseltamivir [Tamiflu] 75 mg PO BID #10 cap 07/10/17 Unknown Rx Promethazine [Phenergan TAB] 25 mg PO Q6HR PRN #20 tab 09/24/17 Unknown Rx Promethazine [Phenergan] 25 mg [place] Q6HR PRN #5 supp.rect 09/24/17 Unknown Rx traMADol [Ultram] 50 mg PO Q6HR PRN #14 tablet 09/24/17 Unknown Rx Ciprofloxacin/Hydrocortisone 3 drop OTIC BID 7 Days #1 bottle 09/07/18 Unknown Rx [Ciprofloxacin HC OTIC] Loratadine 10 mg PO DAILY 30 Days #30 tablet 09/07/18 Unknown Rx Allergies Allergy/AdvReac Type Severity Reaction Status Date / Time No Known Allergies Allergy Verified 03/17/14 05:44 ED Dental HPI - General Chief complaint: Earache Stated complaint: LEFT EAR PAIN Time Seen by Provider: 09/07/18 11:26 Source: patient Mode of arrival: Ambulatory Limitations: No Limitations - Related Data Previous Rx's Medication Instructions Recorded Last Taken Type Cyclobenzaprine [Flexeril] 10 mg PO TID PRN #15 tablet 10/20/16 Unknown Rx Ibuprofen [Motrin] 600 mg PO Q8H PRN #15 tablet 10/20/16 Unknown Rx Brompheniramine/Pseudoephed/Dm 10 ml PO Q4H #200 ml 07/10/17 Unknown Rx [Bromfed Dm Cough Syrup] Oseltamivir [Tamiflu] 75 mg PO BID #10 cap 07/10/17 Unknown Rx Promethazine [Phenergan TAB] 25 mg PO Q6HR PRN #20 tab 09/24/17 Unknown Rx Promethazine [Phenergan] 25 mg [place] Q6HR PRN #5 supp.rect 09/24/17 Unknown Rx traMADol [Ultram] 50 mg PO Q6HR PRN #14 tablet 09/24/17 Unknown Rx Ciprofloxacin/Hydrocortisone 3 drop OTIC BID 7 Days #1 bottle 09/07/18 Unknown Rx [Ciprofloxacin HC OTIC] Loratadine 10 mg PO DAILY 30 Days #30 tablet 09/07/18 Unknown Rx Allergies Allergy/AdvReac Type Severity Reaction Status Date / Time No Known Allergies Allergy Verified 03/17/14 05:44 ED Review of Systems ROS: Stated complaint: LEFT EAR PAIN Other details as noted in HPI Constitutional: denies: fever, malaise ENT: ear pain Respiratory: denies: cough Cardiovascular: denies: chest pain ED Past Medical Hx - Past Medical History Previous Medical History?: Yes Hx Asthma: Yes Additional medical history: Chronic back pain - Surgical History Past Surgical History?: No - Social History Smoking Status: Never Smoker Substance Use Type: None - Medications Home Medications: Home Medications Medication Instructions Recorded Confirmed Last Taken Type Cyclobenzaprine [Flexeril] 10 mg PO TID PRN #15 tablet 10/20/16 Unknown Rx Ibuprofen [Motrin] 600 mg PO Q8H PRN #15 tablet 10/20/16 Unknown Rx Brompheniramine/Pseudoephed/Dm 10 ml PO Q4H #200 ml 07/10/17 Unknown Rx [Bromfed Dm Cough Syrup] Oseltamivir [Tamiflu] 75 mg PO BID #10 cap 07/10/17 Unknown Rx Promethazine [Phenergan TAB] 25 mg PO Q6HR PRN #20 tab 09/24/17 Unknown Rx Promethazine [Phenergan] 25 mg [place] Q6HR PRN #5 supp.rect 09/24/17 Unknown Rx traMADol [Ultram] 50 mg PO Q6HR PRN #14 tablet 09/24/17 Unknown Rx Ciprofloxacin/Hydrocortisone 3 drop OTIC BID 7 Days #1 bottle 09/07/18 Unknown Rx [Ciprofloxacin HC OTIC] Loratadine 10 mg PO DAILY 30 Days #30 tablet 09/07/18 Unknown Rx ED Physical Exam - General Limitations: No Limitations General appearance: alert, in no apparent distress - Head Head exam: Present: atraumatic - ENT ENT exam: Present: other (erythematous edematous tonsils, TM WNL, auditory canal inflamed tender on left ) - Neck Neck exam: Present: normal inspection, full ROM. Absent: tenderness, meningismus - Respiratory Respiratory exam: Absent: respiratory distress - Neurological Exam Neurological exam: Present: alert, oriented X3 - Psychiatric Psychiatric exam: Present: normal affect, normal mood - Skin Skin exam: Present: warm, dry, intact, normal color ED Course Vital Signs 09/07/18 10:16 Temperature 98.3 F Pulse Rate 96 H Respiratory 20 Rate Blood Pressure 132/83 O2 Sat by Pulse 97 Oximetry ED Medical Decision Making - Medical Decision Making left otitis externa, allergic rhinitis rx: loratadine, ciprofloxacin Critical care attestation.: If time is entered above; I have spent that time in minutes in the direct care of this critically ill patient, excluding procedure time. ED Disposition Clinical Impression: Otitis externa, Allergic rhinitis Disposition: DC-01 TO HOME OR SELFCARE Is pt being admited?: No Does the pt Need Aspirin: No Condition: Stable Instructions: Otitis Externa (ED), Allergic Rhinitis (ED) Prescriptions: Ciprofloxacin/Hydrocortisone [Ciprofloxacin HC OTIC] 3 drop OTIC BID 7 Days #1 bottle Loratadine 10 mg PO DAILY 30 Days #30 tablet Forms: Work/School Release Form(ED)
[2018-09-07 12:24] VITALS: BP 137/80
== END 2018-09-07 12:23 | disposition home or self-care (01) ==
LOC: ED 10:07
DX: H60.92 Unspecified otitis externa, left ear (principal); J30.9 Allergic rhinitis, unspecified; M54.9 Dorsalgia, unspecified; G89.29 Other chronic pain
CPT/HCPCS: 99282

== ENCOUNTER 2018-11-05 09:11 | Emergency (ER) | payer OTHER ==
--- NOTE | 2018-11-05 10:29 | Emergency Department Report ---
Abscess Boil HPI - HPI Chief Complaint: Skin/Abscess/Foreign Body Stated Complaint: FINGER INJURY Duration: 3 Days Location: Upper Extremity Severity: Mild History: Yes Pain, Yes Purulent Drainage, No Fever, No Numbness, No Foreign Body, No Previous History, No Insect Bite HPI: This is a 33-year-old -[place] female who presents to the emergency room with swelling and drainage around the right fifth nail bed. Patient states bruising and swelling occurred 1 week ago. She noticed purulent drainage 2-3 days ago. She does not recall injury. Home Medications: Previous Rx's Medication Instructions Recorded Last Taken Type Cyclobenzaprine [Flexeril] 10 mg PO TID PRN #15 tablet 10/20/16 Unknown Rx Ibuprofen [Motrin] 600 mg PO Q8H PRN #15 tablet 10/20/16 Unknown Rx Brompheniramine/Pseudoephed/Dm 10 ml PO Q4H #200 ml 07/10/17 Unknown Rx [Bromfed Dm Cough Syrup] Oseltamivir [Tamiflu] 75 mg PO BID #10 cap 07/10/17 Unknown Rx Promethazine [Phenergan TAB] 25 mg PO Q6HR PRN #20 tab 09/24/17 Unknown Rx Promethazine [Phenergan] 25 mg SC Q6HR PRN #5 supp.rect 09/24/17 Unknown Rx traMADol [Ultram] 50 mg PO Q6HR PRN #14 tablet 09/24/17 Unknown Rx Ciprofloxacin/Hydrocortisone 3 drop OTIC BID 7 Days #1 bottle 09/07/18 Unknown Rx [Ciprofloxacin HC OTIC] Loratadine 10 mg PO DAILY 30 Days #30 tablet 09/07/18 Unknown Rx Ibuprofen [Motrin 600 MG tab] 600 mg PO Q8H PRN #20 tablet 11/05/18 Unknown Rx Sulfamethoxazole/Trimethoprim 1 each PO BID #14 tablet 11/05/18 Unknown Rx [Bactrim DS TAB] Allergies/Adverse Reactions: Allergies Allergy/AdvReac Type Severity Reaction Status Date / Time No Known Allergies Allergy Verified 11/05/18 09:12 ED Review of Systems ROS: Stated complaint: FINGER INJURY Other details as noted in HPI Constitutional: denies: chills, fever Respiratory: denies: cough, shortness of breath, wheezing Cardiovascular: denies: chest pain, palpitations Gastrointestinal: denies: abdominal pain, nausea, diarrhea Skin: lesions (swelling in posterior drainage of right fifth nail bed). denies: rash Neurological: denies: headache, weakness, paresthesias Psychiatric: denies: anxiety, depression ED Past Medical Hx - Past Medical History Hx Asthma: Yes Additional medical history: Chronic back pain - Social History Smoking Status: Never Smoker Substance Use Type: None - Medications Home Medications: Home Medications Medication Instructions Recorded Confirmed Last Taken Type Cyclobenzaprine [Flexeril] 10 mg PO TID PRN #15 tablet 10/20/16 Unknown Rx Ibuprofen [Motrin] 600 mg PO Q8H PRN #15 tablet 10/20/16 Unknown Rx Brompheniramine/Pseudoephed/Dm 10 ml PO Q4H #200 ml 07/10/17 Unknown Rx [Bromfed Dm Cough Syrup] Oseltamivir [Tamiflu] 75 mg PO BID #10 cap 07/10/17 Unknown Rx Promethazine [Phenergan TAB] 25 mg PO Q6HR PRN #20 tab 09/24/17 Unknown Rx Promethazine [Phenergan] 25 mg SC Q6HR PRN #5 supp.rect 09/24/17 Unknown Rx traMADol [Ultram] 50 mg PO Q6HR PRN #14 tablet 09/24/17 Unknown Rx Ciprofloxacin/Hydrocortisone 3 drop OTIC BID 7 Days #1 bottle 09/07/18 Unknown Rx [Ciprofloxacin HC OTIC] Loratadine 10 mg PO DAILY 30 Days #30 tablet 09/07/18 Unknown Rx Ibuprofen [Motrin 600 MG tab] 600 mg PO Q8H PRN #20 tablet 11/05/18 Unknown Rx Sulfamethoxazole/Trimethoprim 1 each PO BID #14 tablet 11/05/18 Unknown Rx [Bactrim DS TAB] ED Abscess Boil Physical Exam - Exam General: Vital signs noted. No distress. Alert and acting appropriately. Front/Back of Body, Lg (Color): 1 - Erythema, swelling, tenderness of the medial fifth nail fold Size: 1 cm Exam: Yes Tenderness, Yes Fluctuance, Yes Surrounding Cellulites/Erythema, Yes Normal Neurologic Exam, Yes Normal Circulation, No Lymphangitis, No Crepitation, No Heart Murmur I & D Note - I & D Note I & D Note: The area was prepared and draped in the usual, sterile manner. The site was anesthetized with 1% lidocaine without epinephrine. A puncture incision along the local skin lines was made and the purulent material expressed with 18 gauge blunt needle. Bleeding was minimal. Followup: The patient tolerated the procedure well without complications. Standard post-procedure care was explained and return precautions are given. ED Course Vital Signs 11/05/18 09:18 Temperature 98.1 F Pulse Rate 100 H Respiratory 16 Rate Blood Pressure 120/82 [Left] O2 Sat by Pulse 97 Oximetry Critical care attestation.: If time is entered above; I have spent that time in minutes in the direct care of this critically ill patient, excluding procedure time. ED Medical Decision Making - Medical Decision Making Patient is stable and examined by me. Paronychia to right medial skin fold. No acute signs of distress noted. I&D refer to note. Discussed plan to start bactrim DS and ibuprofen with patient. Educated patient and spouse on follow up plan to have wound reassessed in 2-3 days by a primary care doctor. Patient agrees to ED plan of care. Discharged home and follow up with PCP in 2-3 days. ED Disposition Clinical Impression: Paronychia of finger of right hand Disposition: DC-01 TO HOME OR SELFCARE Is pt being admited?: No Does the pt Need Aspirin: No Condition: Stable Instructions: Paronychia (ED) Additional Instructions: Complete full course of antibiotics as prescribed. Avoid drinking alcohol while taking antibiotics and for 24 hours after com pletion. Follow up with primary care provider in 2-3 days for wound reevaluation. Prescriptions: Sulfamethoxazole/Trimethoprim [Bactrim DS TAB] 1 each PO BID #14 tablet Ibuprofen [Motrin 600 MG tab] 600 mg PO Q8H PRN #20 tablet PRN Reason: Pain Referrals: JUVENTINO LEE MD [Primary Care Provider] - 3-5 Days [facility], [facility] [Provider Group] - 3-5 Days [facility] [Provider Group] - 3-5 Days [facility] [Provider Group] - 3-5 Days Forms: Work/School Release Form(ED) Time of Disposition: 12:18
[2018-11-05 12:33] VITALS: BP 119/81
== END 2018-11-05 12:31 | disposition home or self-care (01) ==
LOC: ED 09:11
DX: L03.011 Cellulitis of right finger (principal); J45.909 Unspecified asthma, uncomplicated